=== PATIENT | female | born 1945 | race Caucasian/White ===

== ENCOUNTER 2016-08-04 19:33 | Emergency (ER) | payer MEDICARE ==
[~2016-08-04 19:33] MED LIST: ADVAIR 250-501 EACH INH; AMARYL 2MG TABLE2 MG PO; ANTIVERT 25MG T25 MG PO; AZOPT OU; BORIC ACID VG; CALCIUM 600 +1 EAC8 PO; CHRONULAC20 GM/30 M PO; CITALOPRAM HBR20 MG PO; CLARITIN10 M2 PO; COLACE 100MG C100 MG PO; DULCOLAX10 MG PR; FERROUS SULFAT325 MG PO; FUROSEMIDE20 MG PO; GABAPENTIN800 MG PO; KLONOPIN TAB 00.5 MG PO; KLOR-CON 1010 MEQ PO; LANTUS SOL100 UNIT/1 SQ; LANTUS100 UNIT/1 SC; LATANOPROST2.5 ML OP; LEVAQUIN500 MG PO; LISINOPRIL20 MG PO; MECLIZINE HCL25 MG PO; MIRALAX17 GM PO; MIRTAZAPINE30 MG PO; MOVANTIK25 MG PO; NEURONTIN 400400 MG PO; NEXIUM40 MG PO; NORVASC 5 MG TAB5 MG PO; NOVOLOG 10100 UNITS1 SC; OMEPRAZOLE20 MG PO; POTASSIUM CHLO10 MEQ PO; SPIRONOLACTONE25 MG PO; XIFAXAN550 MG PO
[2016-08-04 21:30] LABS: HEMOGLOBIN 14.8 gm/dl (12.3-15.3); RED BLOOD COUNT 4.94 M/UL (4.00-5.10)
[2016-08-04 21:50] LABS: BUN/CREATININE RATIO 9 (0-10)
[2016-11-08] MEDS ORDERED: NORCO 10-325 T1 EACH PO (09:27)
[2016-11-08] MEDS ORDERED: ASPIRIN81 MG PO (12:46)
[2016-11-08] MEDS ORDERED: CLARITIN 10MG T10 MG PO (12:46)
[2016-11-08] MEDS ORDERED: TESSALON PERLE100 MG PO (12:47)
[2016-11-08] MEDS ORDERED: VENTOLIN HFA 66.7 GM INH (12:47)
[2016-11-09] MEDS ORDERED: CHRONULAC20 GM/30 M PO (11:20)
[2016-11-09] MEDS ORDERED: METOPROLOL TART25 MG PO (11:21)
== END 2016-08-05 01:05 | disposition home or self-care (01) ==
LOC: ER1 19:33
PROVIDERS: Specialist/Technologist Athletic Trainer
DX: J44.0 Chronic obstructive pulmonary disease with (acute) lower respiratory infection (principal); J18.9 Pneumonia, unspecified organism; E11.9 Type 2 diabetes mellitus without complications; E78.5 Hyperlipidemia, unspecified; I10 Essential (primary) hypertension; E66.01 Morbid (severe) obesity due to excess calories; K21.9 Gastro-esophageal reflux disease without esophagitis; Z90.49 Acquired absence of other specified parts of digestive tract; Z79.84 Long term (current) use of oral hypoglycemic drugs; Z79.899 Other long term (current) drug therapy
CPT/HCPCS: 36415; 36600; 71010; 80053; 81001; 82140; 82550; 82553; 82803; 83605; 83880; 84484; 85025; 87077; 87086; 87186; 93005; 94664; 96365; 96375; 99284; J1956; J2405; J2930